=== PATIENT | female | born 1960 | race Caucasian/White ===

== ENCOUNTER 2017-02-21 08:23 | Emergency (ER) | payer OTHER ==
[~2017-02-21] VITALS: Ht 157.5 cm; Wt 72.6 kg
[~2017-02-21 08:23] MED LIST: IBUPROFEN600 MG PO; LISINOPRIL20 MG PO; PAIN & FEVER325 MG PO
== END 2017-02-21 08:55 | disposition home or self-care (01) ==
LOC: ED 08:23
DX: F41.9 Anxiety disorder, unspecified (principal); I10 Essential (primary) hypertension; F17.200 Nicotine dependence, unspecified, uncomplicated; Z86.19 Personal history of other infectious and parasitic diseases
CPT/HCPCS: 99282

== ENCOUNTER 2017-07-03 03:23 | Emergency (ER) | payer OTHER ==
[~2017-07-03] VITALS: Ht 157.5 cm; Wt 74.8 kg
== END 2017-07-03 04:06 | disposition home or self-care (01) ==
LOC: ED 03:23
DX: J40 Bronchitis, not specified as acute or chronic (principal); I10 Essential (primary) hypertension; F17.200 Nicotine dependence, unspecified, uncomplicated
CPT/HCPCS: 99282

== ENCOUNTER 2018-03-17 21:39 | Emergency (ER) | payer OTHER ==
[~2018-03-17] VITALS: Ht 157.5 cm; Wt 74.8 kg
[2018-03-17] MEDS ORDERED: NORCO 5-325 TA1 EACH PO (22:07)
--- OUTSIDE RECORDS SUMMARY | 2018-03-17 22:10 | XMS | Clinical Summary ---
Demographics + + + | Address | [address] | | | [place] [address] | + + + | Home Phone | | + + + | Preferred Language | Unknown | + + + | Marital Status | Single | + + + | Muslim Affiliation | Unknown | + + + | Race | Unknown | + + + | Ethnic Group | Unknown | + + + Author + + + | Author | [facility] | | | and [place] | + + + | Organization | [facility] | | | and [place] | + + + | Address | Unknown | + + + | Phone | Unavailable | + + + Support + + + + + | Name | Relationship | Address | Phone | + + + + + | Óscar Harmon | ECON | [address] | | | | | [address] [place], | | | | | [place] [address] | | + + + + + Care Team Providers + +------+ + | Care Art Conservator Name | Role | Phone | + +------+ + | Moe Acosta NP | PP | Unavailable | + +------+ + Allergies No Known Allergies Current Medications + + +-------+---------+------+------+-------+ | Prescription | Sig. | Disp. | Refills | Star | End | Statu | | | | | | t | Date | s | | | | | | Date | | | + + +-------+---------+------+------+-------+ | Calcium 150 MG | Take 1 tablet by | | | | | Activ | | TABS | mouth Daily. | | | | | e | + + +-------+---------+------+------+-------+ | ibuprofen (ADVIL, | Take 10 mg/kg by | | | | | Activ | | MOTRIN) 100 mg/5 mL | mouth every 6 hours | | | | | e | | suspension | as needed for Fever | | | | | | | | (Swish and spit). | | | | | | + + +-------+---------+------+------+-------+ | | Take 1 tablet by | | | | | Activ | | lisinopril-hydrochlo | mouth Daily. | | | | | e | | rothiazide | | | | | | | | (VANIA FITCHSTORETIC | | | | | | | | ) 20-12.5 MG per | | | | | | | | tablet | | | | | | | + + +-------+---------+------+------+-------+ | aspirin 81 mg EC | Take 81 mg by mouth | | | | | Activ | | tablet | Daily. | | | | | e | + + +-------+---------+------+------+-------+ Active Problems No known active problems Family History + + +------+ + | Medical History | Relation | Name | Comments | + + +------+ + | Hypertension | Father | | | + + +------+ + | Heart disease | Maternal | | | | | Grandmoth | | | | | er | | | + + +------+ + | Thyroid disease | Mother | | | + + +------+ + + +------+--------+ + | Relation | Name | Status | Comments | + +------+--------+ + | Father | | Alive | | + +------+--------+ + | Maternal Grandmother | | | | + +------+--------+ + | Mother | | Alive | | + +------+--------+ + Social History + + + +--------+------+ | Tobacco Use | Types | Packs/Day | Years | Date | | | | | Used | | + + + +--------+------+ | Current Every Day | Cigarettes | 0.5 | | | | Smoker | | | | | + + + +--------+------+ + + | Tobacco Cessation: Ready to Quit: No; Counseling Given: Yes | + + + + + | Sex Assigned at | Date Recorded | | | | + + + | Not on file | | + + + Last Filed Vital Signs + + + + | Vital Sign | Reading | Time Taken | + + + + | Blood Pressure | 122/74 | 08/31/20151027 PST | + + + + | Pulse | 95 | 08/31/20158 PST | + + + + | Temperature | 36.8 C (98.3 F) | 08/31/2015 1028 PST | + + + + | Respiratory Rate | 18 | 08/31/20151027 PST | + + + + | Oxygen Saturation | 96% | 08/31/20151027 PST | + + + + | Inhaled Oxygen | - | - | | Concentration | | | + + + + | Weight | 75.8 kg (167 lb) | 08/31/20151027 PST | + + + + | Height | 162.6 cm (5' 4") | 08/31/20151027 PST | + + + + | Body Mass Index | 28.67 | 08/31/20151027 PST | + + + + Plan of Treatment + + + + + | Health Maintenance | Due Date | Last Done | Comments | + + + + + | Vaccine: | | | | | Dtap/Tdap/Td (1 - | 1 | | | | Tdap) | | | | + + + + + | Vaccine: | | | | | Pneumococcal 19-64 | 1 | | | | (PPSV23 only) Medium | | | | | Risk (1 of 1 - | | | | | PPSV23) | | | | + + + + + | Cervical Cancer | | | | | Screening (Pap) | 2 | | | + + + + + | BREAST CANCER | | | | | SCREENING (MAMM Q2 | 2 | | | | YEARS 50-74) | | | | + + + + + | Colorectal Cancer | | | | | Screening | 2 | | | | (Colonoscopy) | | | | + + + + + | Vaccine: Influenza | | | | | (#1) | 8 | | | + + + + + | Hepatitis C | Completed | 09/26/2015, 09/12/2015, | | | Screening | | 08/31/2015, Additional history | | | | | exists | | + + + + + Results Not on filefrom Last 3 Months Insurance + +--------+ +--------+ +---------+ | Payer | Benefi | Subscriber | Type | Phone | Address | | | t Plan | ID | | | | | | / | | | | | | | Group | | | | | + +--------+ +--------+ +---------+ | [employer] | [employer] | [id number] | Medica | [phone] | | MEDICAID HMO | HEALTH | | id | [id number] | | | | [place] | | | | | | | [place]MO [place] | | | | | + +--------+ +--------+ +---------+ + +--------+ +--------+ + + | Guarantor Name | Accoun | Relation to | Date | Phone | Billing Address | | | t Type | Patient | of | | | | | | | | | | + +--------+ +--------+ + + | CATIE PAYTON | Person | Self [birth year] | Home: | [address] | | | al/Fam | | 1961 | [phone] | [address] [place], | | | [place] | | | [phone] | [place] [phone] | + +--------+ +--------+ + +
--- OUTSIDE RECORDS SUMMARY | 2018-03-17 22:10 | XMS | Clinical Summary ---
Demographics + + + | Address | [address] | | | [place] [address] | + + + | Home Phone | | + + + | Preferred Language | Unknown | + + + | Marital Status | Single | + + + | Sikh Affiliation | Unknown | + + + | Race | Unknown | + + + | Ethnic Group | Unknown | + + + Author + + + | Author | [facility] | | | and [place] | + + + | Organization | [facility] | | | and [place] | + + + | Address | Unknown | + + + | Phone | Unavailable | + + + Support + + + + + | Name | Relationship | Address | Phone | + + + + + | Óscar Harmon | ECON | [address] | | | | | [address] [place], | | | | | [place] [address] | | + + + + + Care Team Providers + +------+ + | Care Cushion Gum Applicator Name | Role | Phone | + [...] | [employer] | MOD[employer] | [id number] | Medica | [phone] | | | MEDICAID HMO | HEALTH [...] | Self [birth year] | Home: | [address] | | | al/Fam | | 1961 | [phone] | [address] [place], | | | [place] | | | [address] | [place] [address] | + +--------+ +--------+ + +
== END 2018-03-17 22:49 | disposition home or self-care (01) ==
LOC: ED 21:39
DX: K08.89 Other specified disorders of teeth and supporting structures (principal); I10 Essential (primary) hypertension; F17.200 Nicotine dependence, unspecified, uncomplicated; Z88.0 Allergy status to penicillin; Z79.891 Long term (current) use of opiate analgesic
CPT/HCPCS: 99282